=== PATIENT | male | born 1985 | race African-American/Black ===

== ENCOUNTER 2022-11-28 08:34 | Emergency (ER) | payer OTHER ==
[~2022-11-28] VITALS: Ht 182.9 cm; Wt 113.4 kg
[2022-11-28] MEDS ORDERED: ZITHROMAX500 MG PO (09:44)
== END 2022-11-28 09:57 | disposition home or self-care (01) ==
LOC: ER 08:34
DX: J02.8 Acute pharyngitis due to other specified organisms (principal); B97.89 Other viral agents as the cause of diseases classified elsewhere